=== PATIENT | male | born 1990 | race Caucasian/White ===

== ENCOUNTER 2020-09-09 17:37 | Emergency (ER) | payer MEDICAID ==
[2020-09-09] MEDS: Cephalexin 250 MG Cap PO ONE (19:05)
--- NOTE | 2020-09-09 19:08 | EDM.PDOC ---
ED HPI GENERAL MEDICAL PROBLEM - General Chief Complaint: Eye Problems Stated Complaint: LEFT EYE STY Time Seen by Provider: 09/09/20 17:50 Source of Information: Reports: Patient History Limitations: Reports: No Limitations - History of Present Illness INITIAL COMMENTS - FREE TEXT/NARRATIVE: 30-year-old male presents to the emergency room with concerns of a stye to his left eye. He had seen his primary care about a month ago and was started on Keflex for 10 days with warm compresses he noticed that he had a stye about 2 months prior to that and despite the antibiotics and warm compresses he has not had any improvement. Not affecting his the vision. It has become painful due to its size. Earlier today he decided to sterilized a needle that he had at home and tried to poke the area without relief or decompressing the stye. Duration: Week(s): (lasting 3 months), Constant Location: Reports: Other (left eye) Quality: Reports: Ache Severity: Moderate Improves with: Reports: None Worsens with: Reports: None Associated Symptoms: Reports: No Other Symptoms Treatments [employer]: Reports: Heat Therapy left eye Pain Score (Numeric/FACES): 3 - Related Data Allergies Allergy/AdvReac Type Severity Reaction Status Date / Time No Known Allergies Allergy Verified 09/09/20 17:53 Past Medical History - Past Health History Medical/Surgical History: Denies Medical/Surgical History Social & Family History - Family History Family Medical History: No Pertinent Family History - Caffeine Use Caffeine Use: Reports: Energy Drinks - Recreational Drug Use Recreational Drug Use: No ED ROS GENERAL - Review of Systems Review Of Systems: See Below Constitutional: Reports: No Symptoms HEENT: Reports: Eye Pain (left eye stye). Denies: Contact Lenses, Vision Change Respiratory: Reports: No Symptoms Cardiovascular: Reports: No Symptoms Endocrine: Reports: No Symptoms GI/Abdominal: Reports: No Symptoms : Reports: No Symptoms Musculoskeletal: Reports: No Symptoms Skin: Reports: No Symptoms Neurological: Reports: No Symptoms Psychiatric: Reports: No Symptoms Hematologic/Lymphatic: Reports: No Symptoms Immunologic: Reports: No Symptoms ED EXAM GENERAL W FULL EYE - Physical Exam Exam: See Below Exam Limited By: No Limitations General Appearance: Alert, WD/WN, No Apparent Distress Eye Exam: Bilateral Eye: EOMI, PERRL Eyelids: Right: Normal Appearance, Left: Stye (Reddned, raised, tender to palpation) Conjunctiva & Sclera: Bilateral: Normal Appearance Cornea Exam: Bilateral: Normal Appearance Extraocular Movements: Bilateral: Intact Pupils: Normal Accommodation Pupillary Size: Bilateral: 2 mm Pupillary Reaction: Bilateral: Brisk Ears: Hearing Grossly Normal Nose: Normal Inspection Throat/Mouth: Normal Voice, No Airway Compromise Head: Atraumatic Neck: Normal Inspection Back Exam: Normal Inspection Extremities: Normal Inspection Neurological: Alert, Oriented, No Motor/Sensory Deficits Psychiatric: Normal Affect, Normal Mood Skin Exam: Warm, Dry, Intact, Normal Color, No Rash ED EYE w/ Add Procedure - Additional/Other Procedure(s) Other (Free Text) Procedure(s) [Text1]: cleaned eye with warm compress. #11 blade was used to open the stye poking the skin. Cultures: gram stain, aerobic, anaerobic were taken. Warm compress and sterile Q-tip was used to express small amount of purulent drainage from the stye. Course - Vital Signs Last Recorded V/S: Last Vital Signs Temp 98.4 F 09/09/20 17:40 Pulse 85 09/09/20 17:40 Resp 18 09/09/20 17:40 BP 135/86 09/09/20 17:40 Pulse Ox 96 09/09/20 17:40 - Orders/Labs/Meds Orders: Active Orders 24 hr Category Date Time Status AFB STAIN WITH CULTURE Stat Lab 09/09/20 18:44 Ordered ANAEROBIC CULTURE Stat Lab 09/09/20 18:44 Ordered GRAM STAIN [RM] Stat Lab 09/09/20 18:30 Ordered Meds: Medications Discontinued Medications Generic Name Dose Route Start Last Admin Trade Name Melody PRN Reason Stop Dose Admin Cephalexin 2,000 mg 09/09/20 18:57 Keflex PO 09/09/20 18:58 ONETIME ONE - Re-Assessments/Exams Free Text/Narrative Re-Assessment/Exam: 09/09/20 19:17 Patient reports relief after I&D of the left upper eyelid stye Departure - Departure Time of Disposition: 19:17 Disposition: Home, Self-Care 01 Condition: Good Clinical Impression: External hordeolum Qualifiers: Laterality: left Eyelid: upper Qualified Code(s): H00.014 - Hordeolum externum left upper eyelid - Discharge Information Instructions: Stye Referrals: PCP,Not In Area [Primary Care Provider] - Forms: ED Department Discharge Additional Instructions: 1. Keflex 500mg TID for 10 days. 2. f/u Dr Kyree Bermudez MD, [address], [address] [place], [place] 3. Continue with warm compresses to the eye. Sepsis Event Note (ED) - Evaluation Sepsis Screening Result: No Definite Risk - Focused Exam Vital Signs: Vital Signs Temp Pulse Resp BP Pulse Ox 09/09/20 17:40 98.4 F 85 18 135/86 96 - My Orders Last 24 Hours: My Active Orders 09/09/20 18:30 GRAM STAIN [RM] Stat 09/09/20 18:44 AFB STAIN WITH CULTURE Stat ANAEROBIC CULTURE Stat - Assessment/Plan Last 24 Hours: My Active Orders 09/09/20 18:30 GRAM STAIN [RM] Stat 09/09/20 18:44 AFB STAIN WITH CULTURE Stat ANAEROBIC CULTURE Stat Assessment:: External hordeolum left upper eye lid Plan: 1. Keflex 500mg TID for 10 days. 2. f/u Dr Kyree Bermudez MD, [address], [address] [place], [place] . Should be seen Friday or Friday. 3. Continue with warm compresses to the eye. 4. Return to ER if swelling, redness, worsens.
== END 2020-09-09 19:02 | disposition home or self-care (01) ==
LOC: KA.ED 17:37
DX: H00.014 Hordeolum externum left upper eyelid (principal)
CPT/HCPCS: 67700; 87070; 87075; 87147; 87205; 99282-25; 99283; A9270-GY

== ENCOUNTER 2024-02-09 08:56 | Emergency (ER) | payer OTHER, MEDICAID ==
[2024-02-09] MEDS: HYDROmorphone 1 MG/ML Syringe IVPUSH ONE (09:11)
[2024-02-09 09:14] LABS: BASOPHILS ABSOLUTE AUTO 0.02 10^3/uL (0.00-0.10); BASOPHILS PERCENT AUTO 0.1 % (0.0-1.0); EOSINOPHILS ABSOLUTE AUTO 0.03 10^3/uL (0.10-0.30); EOSINOPHILS PERCENT AUTO 0.2 % (1.0-3.0); HEMATOCRIT 45.2 % (40.0-52.0); HEMOGLOBIN 15.9 g/dL (13.0-17.0); IMMATURE GRAN ABSOLUTE AUTO 0.02 10^3/uL (0.00-0.50); IMMATURE GRAN PERCENT AUTO 0.1 % (0.0-5.0); LYMPHOCYTES ABSOLUTE AUTO 2.55 10^3/uL (1.00-4.00); LYMPHOCYTES PERCENT AUTO 17.4 % (20.0-40.0); MEAN CORPUSCULAR HEMOGLOBIN 31.5 pg (27.0-31.0); MEAN CORPUSCULAR HGB CONC 35.2 g/dL (32.0-36.0); MEAN CORPUSCULAR VOLUME 89.5 fL (82.0-92.0); MEAN PLATELET VOLUME 11.4 fL (7.4-10.4); MONOCYTES PERCENT AUTO 8.8 % (2.0-8.0); NEUTROPHILS ABSOLUTE AUTO 10.77 10^3/uL (2.50-7.00); NEUTROPHILS PERCENT AUTO 73.4 % (50.0-70.0); PLATELET COUNT,PLT 252 10^3/uL (150-400); RED BLOOD CELL COUNT 5.05 10^6/uL (4.50-6.00); RED CELL DISTRIBUTION WIDTH 11.4 % (11.5-14.5); WHITE BLOOD CELL COUNT,WBC 14.69 10^3/uL (5.00-10.00)
[2024-02-09 09:29] LABS: ANION GAP 14.9 mmol/L (5-15); BLOOD UREA NITROGEN,BUN 9 mg/dL (7-18); CALCIUM 9.3 mg/dL (8.7-10.3); CARBON DIOXIDE,CO2 24.1 mmol/L (21.0-32.0); CHLORIDE,CL 102 mmol/L (98-107); ESTIMATED GFR 114 mL/min (>=60); GLUCOSE RANDOM 101 mg/dL (70-140); SODIUM,NA 137 mmol/L (136-145)
[2024-02-09] MEDS: LORazepam 2 MG/ML SDV IVPUSH ONE (09:32)
[2024-02-09] MEDS: Iopamidol 755 Mg/ML 100 ML Bottle IV ONE (11:16)
[2024-02-09] MEDS: Sodium Chloride 0.9% 50 ML IV SCH (11:16)
[2024-02-09] MEDS: cefTRIAXone 2 GM Vial IVPUSH ONE (12:56)
[2024-02-09] MEDS: LORazepam 0.5 MG Tab PO ONE (13:17)
[2024-02-09] MEDS: metroNIDAZOLE 500 MG Tab PO ONE (13:18)
== END 2024-02-09 13:30 ==
LOC: KA.ED 08:56
DX: J18.9 Pneumonia, unspecified organism (principal); J90 Pleural effusion, not elsewhere classified
CPT/HCPCS: 36415; 71045; 71275; 80048; 84484; 85025; 85379; 93010; 96374; 96375; 99284; 99285-25; A9270-GY; J0696; J1170; J2060; J3490; Q9967